=== PATIENT | male | born 1965 | race Caucasian/White ===

== ENCOUNTER 2025-09-22 14:40 | Inpatient (IN) | payer MEDICAID ==
[~2025-09-22] VITALS: Ht 175.3 cm; Wt 73.9 kg
--- NOTE | 2025-09-22 15:01 | ED.PDOC ---
SOB-HPI HPI Comments This is a 59 year old male presenting to the ED with chief complaint of SOB. Patient reports that he has been experiencing SOB with associated left arm pain for the past few days. Patient relays that he had recent imaging done regarding his left arm pain with no fracture found, but was shown to have air pockets in his left lung space. Patient notes his SOB is worse now, prompting this visit. Patient denies any chest pain, dizziness, N/V, fever, chills, headache, or syncope. Chief Complaint: Shortness of Breath Time Seen by MD: 14:58 Primary Care Provider: NONE Reviewed notes: Nurses Notes, Medications, Allergies Information Source: Patient Mode of Arrival: Ambulatory Severity: Moderate Timing: Days Duration: Since onset Context: At Rest History of: COPD Prehospital treatment: None Modifying Factors: Nothing Past Medical History PAST MEDICAL HISTORY: COPD, HTN Surgical History: Tonsillectomy Family History Family History: Reviewed,noncontributory to illness, Unobtainable Social History Smoker: Cigarettes Alcohol: Occasionally Drugs: Denies Drug Use Lives In: Home Constitutional: denies: chills, diaphoresis, fatigue, fever, malaise, sweats, weakness, others EENTM: denies: blurred vision, double vision, ear bleeding, ear discharge, ear drainage, ear pain, ear ringing, eye pain, eye redness, hearing loss, mouth pain, mouth swelling, nasal discharge, nose bleeding, nose congestion, nose pain, photophobia, tearing, throat pain, throat swelling, voice changes, others Respiratory: reports: shortness of breath; denies: cough, hemoptysis, o rthopnea, SOB at rest, SOB with excertion, stridor, wheezing, others Cardiovascular: reports: left arm pain; denies: chest pain, dizzy spells, diaphoresis, Dyspnea on exertion, edema, irregular heart beat, lightheadedness, palpitations, PND, syncope, others Gastrointestinal: denies: abdomen distended, abdominal pain, blood streaked bowels, constipated, diarrhea, dysphagia, difficulty swallowing, hematemesis, melena, nausea, poor appetite, poor fluid intake, rectal bleeding, rectal pain, vomiting, others Genitourinary: denies: burning, dysuria, flank pain, frequency, hematuria, incontinence, penile discharge, penile sore, pain, testicle pain, testicle swelling, urgency, others Neurological: denies: dizziness, fainting, headache, left sided numbness, left sided weakness, numbness, paresthesia, pre-existing deficit, right sided numbness, right sided weakness, seizure, speech problems, tingling, tremors, w eakness, others Musculoskeletal: denies: back pain, gout, joint pain, joint swelling, muscle pain, muscle stiffness, neck pain, others Integumetry: denies: bruises, change in color, change in hair/nails, dryness, laceration, lesions, lumps, rash, wounds, others Allergic/Immunocompromised: denies: Difficulty Healing, Frequent Infections, Hives, Itching, others Hematologic/Lymphatic: denies: anemia, blood clots, easy bleeding, easy bruising, swollen glands, others Endocrine: denies: excessive hunger, excessive sweating, excessive thirst, excessive urination, flushing, intolerance to cold, intolerance to heat, unexplained weight gain, unexplained weight loss, others Psychiatric: denies: anxiety, bipolar disorder, depression, hopeless, panic disorder, schizophrenia, sleepless, suicidal, others All Other Systems: Reviewed and Negative Physical Exam General Appearance: Moderate Distress, Normal HEENT: Normal ENT Inspection, Pharynx Normal, TMs Normal Neck: Full Range of Motion, Non-Tender, Normal, Normal Inspection Respiratory: Chest Non-Tender, No Accessory Muscle Use, Other (Coarse breath sounds) Cardiovascular: No Edema, No JVD, No Murmur, No Gallop, Normal Peripheral Pulses, Regular Rate/Rhythm Breast Exam: Deferred Gastrointestinal: No Organomegaly, Non Tender, No Pulsatile Mass, Normal Bowel Sounds, Soft Genitalia: Deferred Pelvic: Deferred Rectal: Deferred Extremities: No calf tenderness, Normal capillary refill, Normal inspection, Normal range of motion, Non-tender, No pedal edema Musculoskeletal : Apperance: Normal Neurologic: Alert, 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 Was a procedure done?: No Differential Dx Differential Diagnosis: Anxiety, Asthma, Bronchitis X-Ray, Labs, Meds, VS Vital Signs Date Time Temp Pulse Resp B/P (MAP) Pulse Ox O2 Delivery O2 Flow Rate FiO2 09/22/25 14:41 97.5 92 20 168/117 95 97.5 Lab Test 09/22/25 15:00 Range/Units White Blood Count 6.3 4.4-10.8 10^3/uL Red Blood Count 4.94 4.5-5.90 10^6/uL Hemoglobin 15.1 13.5-17.5 g/dL Hematocrit 44.1 41.0-53.0 % Mean Corpuscular Volume 89.3 80.0-100.0 fL Mean Corpuscular Hemoglobin 30.6 28.0-32.0 pg Mean Corpuscular Hemoglobin Concent 34.3 32.0-36.0 g/dL Red Cell Distribution Width 13.7 11.8-14.3 % Platelet Count 257 140-450 10^3/uL Mean Platelet Volume 6.9 6.9-10.8 fL Neutrophils (%) (Auto) 54.1 37.0-80.0 % Lymphocytes (%) (Auto) 30.2 10.0-50.0 % Monocytes (%) (Auto) 9.3 0.0-12.0 % Eosinophils (%) (Auto) 5.0 0.0-7.0 % Basophils (%) (Auto) 1.4 0.0-2.0 % Neutrophils # (Auto) 3.4 1.6-8.6 10 ^3/uL Lymphocytes # (Auto) 1.9 0.4-5.4 10 ^3/uL Monocytes # (Auto) 0.6 0-1.3 10 ^3/uL Eosinophils # (Auto) 0.3 0-0.8 10 ^3/uL Basophils # (Auto) 0.1 0-0.2 10 ^3/uL Nucleated Red Blood Cells 0.0 % Sodium Level 141 136-145 mmol/L Potassium Level 4.0 3.5-5.1 mmol/L Chloride Level 103 98-107 mmol/L Carbon Dioxide Level 31 20-31 mmol/L Anion Gap 7 5-15 Blood Urea Nitrogen 16 9-23 mg/dL Creatinine 1.30 0.700-1.30 mg/dL Glomerular Filtration Rate Calc 63 >90 mL/min BUN/Creatinine Ratio 12.3 10.0-20.0 Serum Glucose 90 74-106 mg/dL Calcium Level 9.6 8.7-10.4 mg/dL B-Type Natriuretic Peptide 16.55 0-100 pg/mL Patient alert. Complaining of shortness a breath. Continues to smoke cigarettes. Vitals stable. Answering questions. WBC within normal limits. Hemoglobin within normal limits. Chest x-ray reviewed does show COPD. Counseled patient on effects of smoking cigarettes for 15 minutes. Explained to the patient. Continue monitoring. Time of 1ST Reevaluation: 15:58 Reevaluation 1ST: Unchanged Patient Education/Counseling: Diagnosis, Treatment Family Education/Counseling: No Family Present SEPSIS Sepsis Screen Date sepsis recognized/suspect: Sep 22, 2025 Time Sepsis recognized/suspect: 1444 Recent Procedure: No On Antibiotic Therapy: No Respiratory Rate >20: No Heart Rate >90: No Temp<36 C (96.8 F) or >38.3 C: No SBP <90 or MAP <65 mmHG: No New Acute Mental Status Change: No Is the patient on CPAP, BIPAP,: No Physician Orders Chest Portable (09/22/25 14:52) Vital Signs Date Time Temp Pulse Resp B/P (MAP) Pulse Ox O2 Delivery O2 Flow Rate FiO2 09/22/25 14:41 97.5 92 20 168/117 95 97.5 Laboratory Tests Test 09/22/25 15:00 White Blood Count 6.3 10^3/uL (4.4-10.8) Departure 1 Departure Time of Disposition: 16:09 Impression: Primary Impression: COPD exacerbation Disposition: ADMITTED INPATIENT Admit to: Med Surg Condition: Guarded Critical Care Note Critical Care Time?: No Stability Stability form required: No Heart Score Heart Score: Heart Score Response (Comments) Value History N/A 0 EKG N/A 0 Age N/A 0 Risk Factors N/A 0 Troponin N/A 0 Total 0 I personally scribed for MORRO WEST MD ([email or web address]) on 09/22/25 at 15:01. Electronically submitted by Lucas Dorsey ([email or web address]). MORRO WEST MD Sep 22, 2025 15:01
[2025-09-22 15:21] LABS: Hematocrit 44.1 % (41.0-53.0); Hemoglobin 15.1 g/dL (13.5-17.5); Mean Corpuscular Hemoglobin 30.6 pg (28.0-32.0); Mean Corpuscular Volume 89.3 fL (80.0-100.0); Nucleated Red Blood Cells % 0.0 %
--- NOTE | 2025-09-22 15:30 | DVH ---
CHEST RADIOGRAPH Indication: sob Technique: Single frontal view of the chest was obtained COMPARISON: CT CHEST WITHOUT CONTRAST on DOS: 06/18/25, XY CHEST PORTABLE on DOS: 06/18/25, XY CHEST PORTABLE on DOS: 03/12/25, XY CHEST XRAY 1 VIEW on DOS: 11/29/24, XY CHEST PORTABLE on DOS: 11/26/24 FINDINGS: Lines and Tubes: None Lungs: Bilateral lower lobe subsegmental atelectasis or scarring. Bullous emphysematous change in the left upper lobe. Pleura: No effusion. No pneumothorax. Cardiomediastinal contours: Unremarkable Bones: Unremarkable IMPRESSION: Bilateral lower lobe subsegmental atelectasis or scarring.
[2025-09-22 15:32] LABS: Chloride 103 mmol/L (98-107); Potassium 4.0 mmol/L (3.5-5.1); Sodium 141 mmol/L (136-145)
[2025-09-22 15:33] LABS: Anion Gap 7 (5-15); Calcium 9.6 mg/dL (8.7-10.4); Carbon Dioxide 31 mmol/L (20-31)
[2025-09-22 15:38] LABS: BUN/Creatinine Ratio 12.3 (10.0-20.0); Blood Urea Nitrogen 16 mg/dL (9-23); Glucose 90 mg/dL (74-106)
[2025-09-22] MEDS ORDERED: methylPREDNISolone SOD SUCC 125 MG/2 ML VL IV ONE (16:15)
[2025-09-22] MEDS: IPRATROPIUM BROM 0.5 MG/2.5ML INH SOL NEB ONE (16:36)
[2025-09-22] MEDS: ALBUTEROL SULF 2.5 MG/0.5ML(0.5%) NEB SOLN NEB ONE (16:37)
[2025-09-22] MEDS ORDERED: DOCUSATE SOD 100 MG CAP PO PRN (16:45)
[2025-09-22] MEDS ORDERED: ACETAMINOPHEN 325 MG TAB PO PRN (16:45)
[2025-09-22] MEDS ORDERED: HYDROcodone-ACET 5/325MG TAB PO PRN (16:45)
[2025-09-22] MEDS ORDERED: IPRATROPIUM BROM 0.5 MG/2.5ML INH SOL NEB PRN (16:45)
[2025-09-22] MEDS ORDERED: ALBUTEROL SULF 2.5 MG/0.5ML(0.5%) NEB SOLN NEB PRN (16:45)
[2025-09-22] MEDS ORDERED: ONDANSETRON HCL 4 MG/2 ML VIAL IV PRN (16:45)
[2025-09-22] MEDS ORDERED: NITROGLYCERIN 0.4 MG SL TAB SL PRN (17:15)
[2025-09-22] MEDS ORDERED: MORPHINE SULFATE 4 MG/ML SYR/VIAL IV PRN (17:15)
--- NOTE | 2025-09-22 17:15 | DVHHP2 ---
History of Present Illness Reason for Visit: COPD with acute exacerbation History of Present Illness The patient is a 59-year-old male with past medical history of hypertension and COPD who presented to [facility] ED with complaint of shortness of breaths. Patient reports that he has been experiencing shortness of breaths with associated left arm pain for the past 2 days. Patient reports recent imaging done regarding his left arm pain negative for fracture, but was shown to have air pockets in his left lung space. Patient's symptoms progressively get worse today that prompted this visit. Patient was seen and evaluated in the ED, laboratory data shows WBC 6.3, platelets 257, sodium 141, potassium 4.0, BUN 16, creatinine 1.30, GFR 63, glucose 90, calcium 9.6, BNP 16.55, blood pressure 166/117 trending down to 146/71, heart rate 92, temperature 97.6 F, O2 saturation 95% on oxygen. Chest x-ray revealing bilateral lower lobe subsegmental atelectasis or scarring. Patient was given IV Solu-Medrol, breathing treatment, please see medication orders section in the computer. On my assessment, patient denies chest pain, no dizziness, diaphoresis, headache, currently on oxygen, no diarrhea, nausea, vomiting, fever, no chills. Patient was admitted for further evaluation and medical management. Past Medical History COPD, HTN Past Surgical History Tonsillectomy Family History Reviewed, noncontributory to the management of this case. Past Social History The patient homeless, smokes cigarettes, drinks alcohol occasionally, denies illicit drugs abuse. Review of Systems Constitutional: Yes: Weakness; No: Fever, Chills, Sweats, Malaise, Other Eyes: No: Pain, Vision change, Conjunctivae inflammation, Eyelid inflammation, Other, Redness ENT: No: Ear pain, Ear discharge, Nose pain, Nose discharge, Nose congestion, Mouth pain, Mouth swelling, Throat pain, Throat swelling, Other Respiratory: Shortness of breath, Wheezing, Other (SOB at rest); No: Cough, Dry, SOB with excertion, Hemoptysis, Pleuritic Pain, Sputum, Wheezing Cardiovascular: No: Chest Pain, Palpitations, Orthopnea, Paroxysmal Noc. Dyspnea, Edema, Lt Headedness, Other Gastrointestinal: No: Nausea, Vomiting, Abdominal Pain, Diarrhea, Constipation, Melena, Hematochezia, Other Genitourinary: No Dysuria, No Frequency, No Incontinence, No Hematuria, No Retention, No Other Musculoskeletal: No: other, neck pain, shoulder pain, arm pain, back pain, hand pain, leg pain, foot pain Skin: No: Rash, Lesions, Jaundice, Bruising, Other Neurological: No: Weakness, Numbness, Incoordination, Change in speech, Confusion, Seizures, Other Allergies: Uncoded Allergies: DENIES (Allergy, Unknown, 09/22/25) Medications Current Medications Medications Dose Ordered Sig/Vineet Route Start Time Stop Time Status Last Admin Dose Admin Losartan Potassium 50 mg DAILY PO 09/23/25 10:00 Amlodipine Besylate 5 mg DAILY PO 09/23/25 10:00 Albuterol 2.5 mg Q4HPRN PRN NEB 09/22/25 16:45 Ipratropium [place] 0.5 mg Q4HPRN PRN NEB 09/22/25 16:45 Famotidine 20 mg Q12HR IV 09/22/25 22:00 Methylprednisolone Sodium Succinate 40 mg BID IV 09/22/25 22:00 Clonidine HCl 0.1 mg Q4HP PRN PO 09/22/25 16:45 Sodium Chloride 10 ml Q8HR IV 09/22/25 22:00 Acetaminophen/ Hydrocodone Bitart 1 tab Q4HP PRN PO 09/22/25 16:45 Ondansetron HCl 4 mg Q4HP PRN IV 09/22/25 16:45 Docusate Sodium 100 mg BIDPRN PRN PO 09/22/25 16:45 Acetaminophen 650 mg Q6HP PRN PO 09/22/25 16:45 Exam Vital Signs Vital Signs Date Time Temp Pulse Resp B/P (MAP) Pulse Ox O2 Delivery O2 Flow Rate FiO2 09/22/25 16:30 18 94 Room Air* 0 21 09/22/25 14:41 97.5 92 168/117 97.5 General Appearance: Alert, Oriented X3, Cooperative, No acute distress HEENT: Atraumatic, PERRLA, EOMI, Mucous membr. moist/pink Respiratory: Normal air movement Cardiovascular: Regular rate, Normal S1, Normal S2, No murmurs Abdominal: Normal bowel sounds, Soft, No tenderness, No hepatospenomegaly, No masses Extremities: No clubbing, No cyanosis, No edema, Normal pulses, No tenderness/swelling Skin: No rashes, No significant lesion Neuro: Normal speech, Normal tone, Sensation intact, Cranial nerves 3-12 NL, Reflexes 2+, Other (Generalized weakness) Psych/Mental Status: Mental status NL, Mood NL Labs/Xrays Labs Test 09/22/25 15:00 Range/Units White Blood Count 6.3 4.4-10.8 10^3/uL Red Blood Count 4.94 4.5-5.90 10^6/uL Hemoglobin 15.1 13.5-17.5 g/dL Hematocrit 44.1 41.0-53.0 % Mean Corpuscular Volume 89.3 80.0-100.0 fL Mean Corpuscular Hemoglobin 30.6 28.0-32.0 pg Mean Corpuscular Hemoglobin Concent 34.3 32.0-36.0 g/dL Red Cell Distribution Width 13.7 11.8-14.3 % Platelet Count 257 140-450 10^3/uL Mean Platelet Volume 6.9 6.9-10.8 fL Neutrophils (%) (Auto) 54.1 37.0-80.0 % Lymphocytes (%) (Auto) 30.2 10.0-50.0 % Monocytes (%) (Auto) 9.3 0.0-12.0 % Eosinophils (%) (Auto) 5.0 0.0-7.0 % Basophils (%) (Auto) 1.4 0.0-2.0 % Neutrophils # (Auto) 3.4 1.6-8.6 10 ^3/uL Lymphocytes # (Auto) 1.9 0.4-5.4 10 ^3/uL Monocytes # (Auto) 0.6 0-1.3 10 ^3/uL Eosinophils # (Auto) 0.3 0-0.8 10 ^3/uL Basophils # (Auto) 0.1 0-0.2 10 ^3/uL Nucleated Red Blood Cells 0.0 % Sodium Level 141 136-145 mmol/L Potassium Level 4.0 3.5-5.1 mmol/L Chloride Level 103 98-107 mmol/L Carbon Dioxide Level 31 20-31 mmol/L Anion Gap 7 5-15 Blood Urea Nitrogen 16 9-23 mg/dL Creatinine 1.30 0.700-1.30 mg/dL Glomerular Filtration Rate Calc 63 >90 mL/min BUN/Creatinine Ratio 12.3 10.0-20.0 Serum Glucose 90 74-106 mg/dL Calcium Level 9.6 8.7-10.4 mg/dL B-Type Natriuretic Peptide 16.55 0-100 pg/mL PATIENT: DEREK BEACH ACCT: [id number] UNIT: [id number] : 1965 LOC: ER ROOM / BED: / AGE / SEX: 59 / M ADM STATUS: REG ER SERVICE 1452 ORDERING PHYSICIAN: MORRO WEST MD PROCEDURE(s): CXRP - CHEST PORTABLE REASON: sob ORDER NUMBER(s): [id number], ACCESSION NUMBER(s): [id number] CHEST RADIOGRAPH Indication: sob Technique: Single frontal view of the chest was obtained COMPARISON: CT CHEST WITHOUT CONTRAST on DOS: 06/18/25, XY CHEST PORTABLE on DOS: 06/18/25, XY CHEST PORTABLE on DOS: 03/12/25, XY CHEST XRAY 1 VIEW on DOS: 11/29/24, XY CHEST PORTABLE on DOS: 11/26/24 FINDINGS: Lines and Tubes: None Lungs: Bilateral lower lobe subsegmental atelectasis or scarring. Bullous emphysematous change in the left upper lobe. Pleura: No effusion. No pneumothorax. Cardiomediastinal contours: Unremarkable Bones: Unremarkable IMPRESSION: Bilateral lower lobe subsegmental atelectasis or scarring. SEPSIS Sepsis Screen Date sepsis recognized/suspect: Sep 22, 2025 Time Sepsis recognized/suspect: 1444 Recent Procedure: No On Antibiotic Therapy: No Respiratory Rate >20: No Heart Rate >90: No Temp<36 C (96.8 F) or >38.3 C: No SBP <90 or MAP <65 mmHG: No New Acute Mental Status Change: No Is the patient on CPAP, BIPAP,: No Physician Orders Chest Portable (09/22/25 14:52) Losartan Tablet (Cozaar Tablet) (09/23/25 10:00) Amlodipine Tablet (Norvasc Tablet) (09/23/25 10:00) Albuterol Medneb (Ventolin Medneb) (09/22/25 16:45) Ipratropium Medneb (Atrovent Medneb) (09/22/25 16:45) Famotidine Injection (Pepcid Injection) (09/22/25 22:00) Methylprednisolone Sod Succ (Solu Medrol (09/22/25 22:00) Clonidine Hcl Tablet (Catapres Tablet) (09/22/25 16:45) Allergies (09/22/25 16:33) Code Status (09/22/25 16:33) Sodium Chloride Lock (Saline Lock Ns) (09/22/25 22:00) Oxygen Per Hour (09/22/25 16:33) Hydrocodone-Acet 5/325mg Tab ([place] 5/32 (09/22/25 16:45) Ondansetron Hcl (Zofran) (09/22/25 16:45) Docusate Sodium Capsule (Colace Capsule) (09/22/25 16:45) Complete Blood Count (09/23/25 04:00) Comprehensive Metabolic Panel (09/23/25 04:00) Cardiac Diet-2gna,Lofat,Lochol (09/22/25 Dinner) Condition: Serious (09/22/25 16:33) Acetaminophen Tablet (Tylenol Tablet) (09/22/25 16:45) Bedrest With Bathroom Privileg (09/22/25 16:33) Sequential Compression Device (09/22/25 ) Vital Signs Date Time Temp Pulse Resp B/P (MAP) Pulse Ox O2 Delivery O2 Flow Rate FiO2 09/22/25 16:30 18 94 Room Air* 0 21 09/22/25 14:41 97.5 92 20 168/117 95 97.5 Laboratory Tests Test 09/22/25 15:00 White Blood Count 6.3 10^3/uL (4.4-10.8) Medications Medications Dose Ordered Sig/Vineet Route Start Time Stop Time Status Last Admin Dose Admin Albuterol 5 mg ONCE ONCE NEB 09/22/25 16:15 09/22/25 16:16 DC 09/22/25 16:37 5 MG Ipratropium [place] 0.5 mg ONCE ONCE NEB 09/22/25 16:15 09/22/25 16:16 DC 09/22/25 16:36 0.5 MG Assessment/Plan Assessment/Plan COPD with acute exacerbation Generalized weakness Plan 1. Admit to telemetry unit 2. Breathing treatment 3. Pain control management 4. Management of fluids and electrolytes 5. Consultation for hospitalist 6. Diagnostic tests chest x-ray 7. DVT prophylaxis-on SCDs 8. Repeat labs CBC, CMP in a.m. 9. Continue with current medical management 10. Treatment plan discussed with patient and RN. Patient verbalized understanding. Plan discussed with: Patient, Other (RN) My Orders Orders - BEE SANCHEZ DNP Procedure Category Date Status Time Losartan Tablet PHA 09/23/25 In Process (Cozaar Tablet) 10:00 Amlodipine Tablet PHA 09/23/25 In Process (Norvasc Tablet) 10:00 Albuterol Medneb PHA 09/22/25 In Process (Ventolin Medneb) 16:45 Ipratropium Medneb PHA 09/22/25 In Process (Atrovent Medneb) 16:45 Famotidine Injection PHA 09/22/25 In Process (Pepcid Injection) 22:00 Methylprednisolone PHA 09/22/25 In Process Sod Succ (Solu Medrol 22:00 Clonidine Hcl Tablet PHA 09/22/25 In Process (Catapres Tablet) 16:45 Allergies SERG 09/22/25 In Process 16:33 Code Status CODE 09/22/25 Transmitted 16:33 Sodium Chloride Lock PHA 09/22/25 In Process (Saline Lock Ns) 22:00 Oxygen Per Hour RT 09/22/25 Transmitted 16:33 Hydrocodone-Acet PHA 09/22/25 In Process 5/325mg Tab ([place] 16:45 Ondansetron Hcl PHA 09/22/25 In Process (Zofran) 16:45 Docusate Sodium PHA 09/22/25 In Process Capsule (Colace 16:45 Complete Blood Count LAB 09/23/25 Verified 04:00 Comprehensive LAB 09/23/25 Verified Metabolic Panel 04:00 Cardiac DIET 09/22/25 Transmitted Diet-2gna,Lofat,Lochol Dinner Condition: Serious SERG 09/22/25 In Process 16:33 Acetaminophen Tablet PHA 09/22/25 In Process (Tylenol Tablet) 16:45 Bedrest With Bathroom SERG 09/22/25 In Process Privileg 16:33 Sequential SERG 09/22/25 In Process Compression Device Problem List: (1) COPD with acute exacerbation (2) Generalized weakness Date of Service: Sep 22, 2025 Billing Provider: BEE SANCHZE DNP Common Visit Codes: [id number] INP/OBS CARE (HIGH) BEE SANCHEZ DNP Sep 22, 2025 17:15
[2025-09-22 17:32] VITALS: BP 171/106; PULSE 79; RESP 18; TEMP 97.3; O2SAT 96
[2025-09-22] MEDS: methylPREDNISolone SOD SUCC 40 MG/ML VL IV SCH (18:15)
[2025-09-22] MEDS ORDERED: FAMOTIDINE (10MG/ML) 2ML VL IV SCH (22:00)
[2025-09-22] MEDS ORDERED: SODIUM CHLOR 0.9% PF (SALINE LOCK) 10ML VIAL/SYR IV SCH (22:00)
[2025-09-23] MEDS ORDERED: LOSARTAN POTASSIUM 50 MG TAB PO SCH (10:00)
== END 2025-09-22 21:19 | disposition left against medical advice (07) | DRG 140 ==
LOC: ER 14:40 → OVERFLOW 17:13
PROVIDERS: ADMIT Nurse Practitioner Family; ATTEND Nurse Practitioner Family
DX: J44.1 Chronic obstructive pulmonary disease with (acute) exacerbation (principal); Z59.00 Homelessness unspecified; I10 Essential (primary) hypertension; F17.210 Nicotine dependence, cigarettes, uncomplicated
CPT/HCPCS: 36415; 71045; 80048; 83880; 85025; 94640; G0378